=== PATIENT | male | born 2000 | race Caucasian/White ===

== ENCOUNTER 2021-01-12 12:11 | Emergency (ER) | payer OTHER ==
[~2021-01-12] VITALS: Ht 180.3 cm; Wt 97.7 kg
[2021-01-12 13:22] LABS: BASO # 0.1 10^3/uL (0.0-0.2); BASO % 0.6 % (0.0-1.0); EOS # 0.4 10^3/uL (0.0-0.5); EOS % 3.1 % (0.0-3.0); HEMATOCRIT 47.4 % (42.0-52.0); HEMOGLOBIN 16.6 g/dl (13.5-17.5); LYMPH # 2.5 10^3/uL (1.5-5.0); LYMPH % 20.9 % (24.0-44.0); MEAN CORPUSCULAR VOLUME 88.4 fl (80.0-96.0); MONO # 0.8 10^3/uL (0.0-0.8); MONO % 6.9 % (2.0-8.0); NEUTROPHILS # 8.1 10^3/uL (1.5-8.5); PLATELET COUNT, AUTOMATED 241 10^3/uL (150-450); RED BLOOD COUNT 5.36 10^6/uL (4.30-6.10); WHITE BLOOD COUNT 11.9 10^3/uL (4.0-10.0)
--- NOTE | 2021-01-12 13:48 | REP ---
INDICATION: CHEST PAIN COMPARISON: None. TECHNIQUE: PA/Lateral FINDINGS: Lungs: Clear, no infiltrate. Heart: Normal in size. Mediastinum: Mediastinal silhouette unremarkable. Pleural angles: Unremarkable.. Bones and soft tissues: Unremarkable. IMPRESSION: No acute pulmonary disease. <Electronically signed by Justino Abbott > 01/12/21 1391
[2021-01-12 13:52] LABS: ALBUMIN 4.1 GM/DL (3.2-5.2); ALT/SGPT 39 U/L (12-78); BILIRUBIN,DIRECT 0.2 MG/DL (0.0-0.2); BILIRUBIN,TOTAL 0.5 MG/DL (0.2-1.0); BLOOD UREA NITROGEN 13 MG/DL (7-18); CALCIUM LEVEL 9.3 MG/DL (8.5-10.1); CARBON DIOXIDE LEVEL 27 MEQ/L (21-32); CHLORIDE LEVEL 107 MEQ/L (98-107); CK-MB VALUE MASS 1.4 NG/ML (<3.6); CPK CREATINE PHOSPHOKINASE 108 U/L (39-308); CREATININE FOR GFR 0.96 MG/DL (0.70-1.30); GLOMERULAR FILTRATION RATE > 60.0 (>60); GLUCOSE, FASTING 85 MG/DL (70-100); LIPASE 46 U/L (73-393); SODIUM LEVEL 139 MEQ/L (136-145); TOTAL PROTEIN 7.2 GM/DL (6.4-8.2); TROPONIN I < 0.02 NG/ML (< 0.10)
[2021-01-12 14:24] VITALS: BP 127/65
--- NOTE | 2021-01-12 20:27 | ECGEPIP ---
[facility] - ED Test Date: 2021-01-12 Pat Name: MARIOLA AMBROSE Department: Room: - Gender: Male Key Worker: ADAM : 2000 Requested By: Jane Ellison Order Number: [id number] Reading MD: Dimitri Gonzales Measurements Intervals [place] Rate: 79 P: 60 AL: 158 QRS: 7 QRSD: 102 T: 20 QT: 382 QTc: 438 Interpretive Statements Normal sinus rhythm INCOMPLETE RIGHT BUNDLE BRANCH BLOCK NSTTW ABNORMALITY(S) NO PRIORS FOR COMPARISON Electronically Signed on 01-12-2021 20:26:53 EST by Dimitri Gonzales
== END 2021-01-12 14:36 | disposition home or self-care (01) ==
LOC: M ED 12:11
DX: M94.0 Chondrocostal junction syndrome [Tietze] (principal); F17.210 Nicotine dependence, cigarettes, uncomplicated

== ENCOUNTER 2021-07-13 09:58 | Emergency (ER) | payer OTHER ==
[~2021-07-13] VITALS: Ht 180.3 cm; Wt 97.2 kg
[2021-07-13 10:01] VITALS: BP 143/92
[2021-07-13] MEDS ORDERED: AMOX875T PO (11:39)
[2021-07-13] MEDS ORDERED: OLOP2.5D3 OP (11:39)
== END 2021-07-13 11:47 | disposition home or self-care (01) ==
LOC: M ED 09:58
DX: H10.13 Acute atopic conjunctivitis, bilateral (principal); J01.90 Acute sinusitis, unspecified; F17.200 Nicotine dependence, unspecified, uncomplicated